=== PATIENT | male | born 1975 | race Caucasian/White ===

== ENCOUNTER 2018-05-17 07:34 | Inpatient (IN) | payer MEDICAID ==
[~2018-05-17] VITALS: Ht 182.9 cm; Wt 106.6 kg
[2018-05-17 07:35] VITALS: BP 149/114
--- NOTE | 2018-05-17 08:04 | NUR ---
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 DENIES N/V/D; SKIN IS PINK/WARM/DRY; AAOX4 WITH EVEN AND STEADY GAIT; LUNGS CLEAR BL; HR EVEN AND REGULAR; PT DENIES ANY FEVER, SOB, OR COUGH AT THIS TIME; PATIENT STATES PAIN OF 8/10 AT THIS TIME; VSS; PATIENT POSITIONED FOR COMFORT; HOB ELEVATED; BEDRAILS UP X2; BED DOWN. ER MD MADE AWARE OF PT STATUS.
[2018-05-17] MEDS ORDERED: ONDANSETRON 4 MG/2 ML VIAL IVP ONE (08:10)
[2018-05-17] MEDS ORDERED: NITROGLYCERIN 0.4 MG TAB SL ONE ×2 (08:10→08:37)
[2018-05-17] MEDS ORDERED: ENALAPRILAT 2.5 MG/2 ML VIAL IVP ONE ×2 (08:10→08:35)
[2018-05-17] MEDS ORDERED: fentaNYL 0.05 MG/ML VIAL IVP ONE (08:10)
--- NOTE | 2018-05-17 08:10 | NUR ---
Patient being evaluated by physician at bedside.
[2018-05-17] MEDS ORDERED: fentaNYL 0.05 MG/ML VIAL ONE (08:34)
[2018-05-17] MEDS ORDERED: ONDANSETRON 4 MG/2 ML VIAL ONE ×2 (08:36→09:15)
--- NOTE | 2018-05-17 08:36 | NUR ---
got report from ike langley
[2018-05-17 08:53] LABS: BASOPHILS % (AUTO) 0.3 % (0.0-2.0); EOSINOPHILS # (AUTO) 0.2 K/uL (0-0.4); EOSINOPHILS % (AUTO) 2.4 % (0.0-4.0); HEMATOCRIT 50.2 % (36-52); LYMPHOCYTES # (AUTO) 1.4 K/uL (2.0-11.5); LYMPHOCYTES % (AUTO) 21.2 % (20.5-51.1); MEAN CORPUSCULAR HEMOGLOBIN 30 pg (27-31); MEAN CORPUSCULAR HGB CONC 34 g/dL (33-37); MEAN CORPUSCULAR VOLUME 87.6 fL (80-94); MONOCYTES # (AUTO) 0.7 K/uL (0.8-1.0); MONOCYTES % (AUTO) 10.1 % (1.7-9.3); NEUTROPHILS # (AUTO) 4.4 K/uL (1.8-7.7); PLATELET COUNT (AUTO) 249 K/uL (140-450); RED BLOOD CELL COUNT(AUTO) 5.73 MIL/uL (4.20-6.10); RED CELL DISTRIBUTION WIDTH 12.9 % (11.6-13.7); WHITE BLOOD COUNT (AUTO) 6.6 K/uL (4.8-10.8)
[2018-05-17 08:59] LABS: APPEARANCE,URINE CLEAR (CLEAR); BILIRUBIN,URINE 1+ (NEGATIVE); BLOOD, URINE TRACE-I (NEGATIVE); COLOR,URINE YELLOW (YELLOW); LEUKOCYTE ESTERASE ,URINE NEGATIVE (NEGATIVE); NITRITE, URINE NEGATIVE (NEGATIVE); UGLUCOSE 2+ (NEGATIVE)
[2018-05-17 09:16] LABS: BARBITURATE, URINE NEG. ng/ml (NEG <=200); BENZODIAZEPINE, URINE NEG. ng/mL (NEG <=200); CANNABINOID, URINE NEG. ng/mL (NEG <=50); COCAINE, URINE NEG. ng/mL (NEG <=300); OPIATE, URINE NEG. ng/mL (NEG <=2000); PHENCYCLIDINE SCREEN,URINE NEG. ng/mL (NEG <=25)
[2018-05-17 09:24] LABS: ALBUMIN 3.8 g/dL (3.4-5.0); ANION GAP 7.4 (8-16); CARBON DIOXIDE 31.3 mmol/L (21-32); CREATININE 1.2 mg/dL (0.7-1.3); POTASSIUM 3.7 mmol/L (3.5-5.1)
[2018-05-17 09:27] LABS: RBC,URINE 0-5 (RARE) /HPF (0-5); WBC,URINE 0-5 (RARE) /HPF (0-5)
[2018-05-17] MEDS ORDERED: ACETAMINOPHEN 325 MG TAB PO PRN (10:25)
[2018-05-17] MEDS ORDERED: HYDROcodone/APAP 5/325 MG 1 TAB TAB PO PRN (10:25)
[2018-05-17] MEDS ORDERED: ZOLPIDEM 5 MG TAB PO PRN (10:25)
[2018-05-17] MEDS ORDERED: LORazepam 2 MG/ML VIAL IM/IVP PRN (10:25)
[2018-05-17] MEDS ORDERED: DOCUSATE SODIUM 100 MG GELCAP PO PRN (10:25)
[2018-05-17] MEDS ORDERED: NACL 0.9% 1,000 ML IV SCH (10:25)
[2018-05-17] MEDS ORDERED: MORPHINE SULFATE 2 MG/ML SYR IVP PRN (10:25)
--- NOTE | 2018-05-17 10:30 | NUR ---
Patient will be admitted to care of . Admited to tele floor. Will go to room 112-b. Belongings list completed. Report to korin carbajal.
[2018-05-17] MEDS ORDERED: NITROGLYCERIN 0.4 MG TAB SL PRN (10:40)
--- NOTE | 2018-05-17 10:44 | NUR ---
RECEIVED PT ON THE UNIT VIA AJITH, PT IS AMBULATORY, AAOX4, ON ROOM AIR, IV IS ON THE LEFT AC, PATENT, INTACT, FLUSHING WELL, PT DENIES ANY PAIN AT THIS TIME, NO S/S OF RESPIRATORY DISTRESS OR DISCOMFORT NOTED, DISCUSSED PLAN OF CARE WITH PT, PT VERBALIZED UNDERSTANDING, ORIENTED PT TO ROOM, CALL LIGHT IS WITHIN REACH, WILL CONTINUE TO MONITOR.
[2018-05-17] MEDS ORDERED: LISINOPRIL 5 MG TAB PO SCH (11:30)
[2018-05-17] MEDS ORDERED: METF1000 PO (12:00)
[2018-05-17] MEDS ORDERED: LISI5TAB18 PO (12:00)
[2018-05-17 12:15] VITALS: BP 124/76
[2018-05-17] MEDS ORDERED: DEXTROSE 50% 50 ML SYR IVP PRN (12:40)
[2018-05-17 12:49] LABS: MAGNESIUM 1.9 mg/dL (1.8-2.4); PHOSPHORUS 2.5 mg/dL (2.5-4.9); THYROID STIMULATING HORMONE 2.54 uIU/mL (0.34-3.74)
[2018-05-17] MEDS ORDERED: ONDANSETRON 4 MG/2 ML VIAL IM/IVP PRN (13:00)
--- NOTE | 2018-05-17 14:00 | NUR ---
PT IS RESTING IN BED, NO S/S OF DISTRESS OR DISCOMFORT NOTED, CALL LIGHT IS WITHIN REACH.
[2018-05-17 14:22] LABS: PROTHROMBIN TIME 10.5 secs (10.8-13.4)
[2018-05-17 16:00] VITALS: BP 153/92
--- NOTE | 2018-05-17 17:00 | NUR ---
PT IS RESTING IN BED, SEMI FOWLERS POSITION, PT'S GIRLFRIEND IS AT BEDSIDE.
[2018-05-17] MEDS: BLOOD GLUCOSE MONITORING 1 DEV DEV FS SCH ×2 (17:03→20:14)
[2018-05-17] MEDS: metFORMIN 500 MG TAB PO SCH (17:14)
[2018-05-17] MEDS: INSULIN LISPRO SLIDING SCALE 100 UNITS/ML VIAL SUBQ PRN (17:17)
--- NOTE | 2018-05-17 18:00 | NUR ---
DR. KIRAN IS AT PATIENT'S BEDSIDE SPEAKING WITH PT. PATIENT'S GIRLFRIEND IS ALSO AT BEDSIDE.
--- NOTE | 2018-05-17 19:10 | NUR ---
ENDORSED PT TO RAIL CAR UNLOADER NURSE FOR CONTINUITY OF CARE. PT STABLE AT THIS TIME.
--- NOTE | 2018-05-17 19:15 | NUR ---
RECEIVED FROM AM RN IN BED SITTING UP WITH GIRLFRIEND VISITING. VERBALIZES WELL. CALL LIGHT WITH IN REACH. NO SOB. DENIES PAIN. DX. CHEST PAIN. CARE PLANS FOR THE NIGHT DISCUSSED WITH PT. TELEMETRY MONITORING.
[2018-05-17 19:46] VITALS: BP 158/111
[2018-05-17] MEDS: METOPROLOL 25 MG TAB PO SCH (20:12)
[2018-05-17] MEDS ORDERED: SIMVASTATIN 20 MG TAB PO SCH (21:00)
[2018-05-17] MEDS ORDERED: RAMIPRIL 5 MG CAP PO SCH (21:30)
--- NOTE | 2018-05-17 21:48 | NUR ---
PT. SLEEPING. WAKES UP EASILY. ADDED MEDICATION FOR HTN ADMINISTERED ORDERED. NO PAIN COMPLAINTS DONE.
[2018-05-18 00:25] VITALS: BP 142/89
--- NOTE | 2018-05-18 00:31 | NUR ---
SLEEPING AT THIS TIME.
--- NOTE | 2018-05-18 02:15 | NUR ---
IVF SITE INTACT AND NO INFILTRATION. SLEEPING WELL. NO RESTLESSNESS NOTED. CALL LIGHT WITH IN REACH AT ALL TIMES.
--- NOTE | 2018-05-18 04:39 | NUR ---
PT. SLEEPING WELL. TELEMETRY MONITORING. CALL LIGHT WITH IN REACH AT ALL TIMES.
[2018-05-18 05:08] VITALS: BP 138/90
[2018-05-18] MEDS: INSULIN LISPRO SLIDING SCALE 100 UNITS/ML VIAL SUBQ PRN (06:22)
[2018-05-18] MEDS: BLOOD GLUCOSE MONITORING 1 DEV DEV FS SCH (06:22)
--- NOTE | 2018-05-18 06:33 | NUR ---
BLOOD SUGAR CHECK DONE PER FINGERSTICK AND RESULT WAS 151. ADMINISTERED 2 UNITS REGULAR HUMALOG INSULIN. DENIES ANY PAIN AT THIS TIME.
--- NOTE | 2018-05-18 07:20 | NUR ---
RECEIVED BEDSIDE REPORT FROM NIGHT NURSE.TELE PT. PT IN BED, SITTING, ABLE TO AMBULATE. WITH ONGOING IV NS @ 30 ML/HR ON LEFT FA, G 20, INFUSING WELL, PATENT. PT HAS NO COMPLAINTS OF CHEST PAIN. PT IN STABLE CONDITION AND NOT IN RESPIRATORY DISTRESS. BED AT LOWEST POSITION. CALL LIGHT WITHIN EASY REACH.
[2018-05-18 07:43] LABS: BASOPHILS % (AUTO) 0.3 % (0.0-2.0); EOSINOPHILS # (AUTO) 0.2 K/uL (0-0.4); EOSINOPHILS % (AUTO) 2.7 % (0.0-4.0); HEMATOCRIT 49.7 % (36-52); HEMOGLOBIN 16.8 g/dL (12.0-18.0); LYMPHOCYTES # (AUTO) 2.3 K/uL (2.0-11.5); LYMPHOCYTES % (AUTO) 24.8 % (20.5-51.1); MEAN CORPUSCULAR HEMOGLOBIN 29 pg (27-31); MEAN CORPUSCULAR HGB CONC 34 g/dL (33-37); MONOCYTES # (AUTO) 0.8 K/uL (0.8-1.0); MONOCYTES % (AUTO) 9.1 % (1.7-9.3); NEUTROPHILS # (AUTO) 5.8 K/uL (1.8-7.7); NEUTROPHILS % (AUTO) 63.1 % (42.2-75.2); PLATELET COUNT (AUTO) 248 K/uL (140-450); RED BLOOD CELL COUNT(AUTO) 5.71 MIL/uL (4.20-6.10); RED CELL DISTRIBUTION WIDTH 13.3 % (11.6-13.7); WHITE BLOOD COUNT (AUTO) 9.1 K/uL (4.8-10.8)
[2018-05-18 07:56] LABS: ANION GAP 8.7 (8-16); CARBON DIOXIDE 32.1 mmol/L (21-32); CREATININE 1.2 mg/dL (0.7-1.3); POTASSIUM 4.8 mmol/L (3.5-5.1)
[2018-05-18 08:00] VITALS: BP 133/99
[2018-05-18 08:02] LABS: CHOL/HDL RATIO 5.6 (1-4.5)
--- NOTE | 2018-05-18 08:39 | NUR ---
PATIENT HAS BEEN SCREENED AND CATEGORIZED MODERATE NUTRITION RISK. PATIENT WILL BE SEEN WITHIN 3-5 DAYS OF ADMISSION. 05/19/18 05/21/[address]
[2018-05-18] MEDS: metFORMIN 500 MG TAB PO SCH (08:55)
--- NOTE | 2018-05-18 08:55 | NUR ---
AM MEDS ADMINISTERED. PT CAN SWALLOW, TOLERATED WELL. DR. OSORIO AT BEDSIDE, WITH AMA FORM.
[2018-05-18] MEDS: METOPROLOL 25 MG TAB PO SCH (08:56)
[2018-05-18] MEDS ORDERED: POTASSIUM CHLORIDE 10 MEQ TABER PO SCH (09:00)
[2018-05-18] MEDS ORDERED: LISINOPRIL 5 MG TAB PO SCH (09:00)
[2018-05-18] MEDS ORDERED: BUMETANIDE 1 MG TAB PO SCH (09:00)
[2018-05-18] MEDS ORDERED: RAMIPRIL 5 MG CAP PO SCH ×2 (09:00)
--- NOTE | 2018-05-18 10:10 | NUR ---
PT FOR AMA. TOOK OUT IVF, GAVE MED PRESCRIPTIONS. PT VERBALIZED UNDERSTANDING.
--- NOTE | 2018-05-18 10:30 | NUR ---
PT. LEFT FACILITY. AMBULATES WITH STEADY GAIT.
[2018-05-18] MEDS ORDERED: ATORVASTATIN 80 MG TAB PO SCH (17:00)
== END 2018-05-18 10:30 | disposition left against medical advice (07) | DRG 243 ==
LOC: MED 07:34 → MTU 10:02
PROVIDERS: ADMIT General Practice; ATTEND General Practice
DX: K21.9 Gastro-esophageal reflux disease without esophagitis (principal); N17.0 Acute kidney failure with tubular necrosis; I16.0 Hypertensive urgency; M94.0 Chondrocostal junction syndrome [Tietze]; E11.65 Type 2 diabetes mellitus with hyperglycemia; I10 Essential (primary) hypertension; E87.1 Hypo-osmolality and hyponatremia; E66.9 Obesity, unspecified; I25.10 Atherosclerotic heart disease of native coronary artery without angina pectoris; E78.5 Hyperlipidemia, unspecified; G47.33 Obstructive sleep apnea (adult) (pediatric); Z53.21 Procedure and treatment not carried out due to patient leaving prior to being seen by health care provider; I34.0 Nonrheumatic mitral (valve) insufficiency; I07.1 Rheumatic tricuspid insufficiency; Z88.5 Allergy status to narcotic agent; Z68.31 Body mass index [BMI] 31.0-31.9, adult; Z91.14 Patient's other noncompliance with medication regimen; Z82.49 Family history of ischemic heart disease and other diseases of the circulatory system; Z79.84 Long term (current) use of oral hypoglycemic drugs
CPT/HCPCS: 36415; 71045; 80048; 80053; 80305; 81001; 82948; 83036; 83690; 83735; 83880; 84100; 84134; 84443; 84484; 85025; 85610; 85730; 87081; 87086; 93005; 96374; 96375; 99285; J1815; J2405; J3010; J3490; J7030; Q0092